=== PATIENT | female | born 2000 | race Caucasian/White ===

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

== ENCOUNTER 2021-02-10 16:46 | Emergency (ER) | payer OTHER ==
[2021-02-10 16:51] VITALS: BP 142/83; PULSE 100; RESP 22; TEMP 98.2
[2021-02-10] MEDS ORDERED: KETOROLAC 15 MG/ML 1 ML VIAL IM STA (17:39)
[2021-02-10] MEDS ORDERED: HYDROcodone/APAP 5-325MG 1 EACH TAB PO STA (17:39)
--- NOTE | 2021-02-10 17:46 | ED ---
Lower Extremity Injury HPI - General Chief Complaint: Extremity Injury, Lower Stated Complaint: Lt Knee Pain/Injury Source: patient, family, RN notes reviewed Mode of arrival: wheelchair Limitations: no limitations - History of Present Illness Initial Comments: 20-year-old white female, alert and oriented 4, presents to the emergency room with complaints of dancing approximately one hour ago on her left foot stuck to the floor but she twisted her knee sustaining a lateral patellar dislocation. Patient states that she put it back really quick but continues to have swelling and pain. Patient states she has never had a dislocation in the past. She states that the pain continues despite the relocation. Patient denies any other medical history, does not take any medication, denies daily smoking or drinking history. MD Complaint: knee injury -: hour(s) (1) Injury: Knee: Left (Was dancing and twisted her knee, patellar dislocation resolved prior to arrival) Type of Injury: unknown Severity scale (1-10): 10 Improves With: nothing Worsens With: movement, palpation Context: other (Dancing lateral patellar dislocation per patient) Associated Symptoms: snap/pop sensation, swelling, unable to bear weight - Related Data Previous Rx's Medication Instructions Recorded Ibuprofen [Motrin] 600 mg PO Q8HR PRN #20 tab 02/10/21 Allergies Allergy/AdvReac Type Severity Reaction Status Date / Time No Known Allergies Allergy Verified 02/10/21 16:51 Review of Systems ROS Statement: Those systems with pertinent positive or pertinent negative responses have been documented in the HPI. ROS Other: All systems not noted in ROS Statement are negative. Past Medical History Past Medical History: No Reported History History of Any Multi-Drug Resistant Organisms: None Reported Additional Past Surgical History / Comment(s): Facial sx. Past Psychological History: No Psychological Hx Reported Smoking Status: Never smoker Past Alcohol Use History: None Reported Past Drug Use History: None Reported General Exam Limitations: no limitations General appearance: alert, in distress (Left knee pain) Head exam: Present: atraumatic, normocephalic, normal inspection Eye exam: Present: normal appearance, PERRL, EOMI. Absent: scleral icterus, conjunctival injection, periorbital swelling Pupils: Present: normal accommodation ENT exam: Present: normal exam, normal oropharynx, mucous membranes moist Neck exam: Present: normal inspection, full ROM. Absent: tenderness, meningismus, lymphadenopathy, thyromegaly Respiratory exam: Present: normal lung sounds bilaterally. Absent: respiratory distress, wheezes, rales, rhonchi, stridor, chest wall tenderness, accessory muscle use, decreased breath sounds Cardiovascular Exam: Present: regular rate, normal rhythm, normal heart sounds. Absent: systolic murmur, diastolic murmur, rubs, gallop, clicks GI/Abdominal exam: Present: soft, normal bowel sounds. Absent: distended, tenderness, guarding, rebound, rigid Rectal exam: Present: deferred Extremities exam: Present: normal capillary refill. Absent: pedal edema, calf tenderness Left Knee exam: Present: tenderness, swelling, effusion (Suprapatellar, left lateral patella). Absent: full ROM, abrasion, laceration, ecchymosis, deformity, crepitus, dislocation, erythema Lower Leg exam: Present: normal inspection, full ROM Ankle exam: Present: normal inspection, full ROM Foot/Toe exam: Present: normal inspection, full ROM Neurovascular tendon exam: Present: no vascular compromise. Absent: pulse deficit, abnormal cap refill, motor deficit, sensory deficit, extremity cold to touch, pallor, abnormal 2-point discrimination, decreased fine/light touch, foot drop Back exam: Present: normal inspection. Absent: tenderness, CVA tenderness (R), CVA tenderness (L), muscle spasm, paraspinal tenderness, vertebral tenderness, rash noted Neurological exam: Present: alert, oriented X3, CN II-XII intact Psychiatric exam: Present: normal affect, normal mood, anxious Skin exam: Present: warm, dry, intact, normal color. Absent: rash, cyanosis, diaphoretic, petechiae, pallor Course Vital Signs 02/10/21 16:48 Temperature 98.2 F Pulse Rate 100 Respiratory 22 Rate Blood Pressure 142/83 O2 Sat by Pulse 100 Oximetry - Reevaluation(s) Reevaluation #1: 02/10/21 19:14 Patient continues to complain of excruciating left knee pain states that she can even straighten it or bear any mom of weight. X-ray was negative. CT ordered. Time: 19:00 Medical Decision Making - Medical Decision Making X-ray negative for fracture or dislocation, however there is a small knee joint effusion which is consistent with patient's complaints of the lateral patellar dislocation prior to arrival. Patient was given [place] and Toradol with minimal relief. Patient offered morphine and declined. CT of the left knee completed due to patient's increased pain and inability to flex or extend the knee of sign ificant pain and shows soft tissue swelling anterior to the patella however no fractures noted. Patient placed in a knee immobilizer directed to rest, ice, elevate and take Motrin as prescribed with Tylenol 3 as needed for severe pain. Case discussed With Dr. Combs who was agreeable to plan of discharge and patient follow up with orthopedics next week. Disposition Clinical Impression: Knee pain, Knee effusion, left Disposition: HOME SELF-CARE Condition: Fair Instructions (If sedation given, give patient instructions): Swollen Knee Joint (ED), Knee Pain (ED), Knee Immobilizer (ED) Additional Instructions: Rest, ice, elevate, and wear knee immobilizer until seen by orthopedics, do not wear during sleep. Take medication as prescribed and return if increasing pain or numbness. Prescriptions: Ibuprofen [Motrin] 600 mg PO Q8HR PRN #20 tab PRN Reason: Pain Is patient prescribed a controlled substance at d/c from ED?: No Referrals: May Cochran MD [Primary Care Provider] - 1-2 days Hakeem Salvador PAC [[facility]] - 1-2 days Time of Disposition: 19:31
--- NOTE | 2021-02-10 18:10 | XR ---
EXAMINATION TYPE: XR knee complete LT DATE OF EXAM: 02/10/2021 COMPARISON: NONE HISTORY: Knee pain TECHNIQUE: 3 views FINDINGS: I see no fracture nor dislocation. Joint spaces are normal. There is soft tissue swelling a nterior to the patella. There is small knee joint effusion. IMPRESSION: Small knee joint effusion. No fracture.
[2021-02-10] MEDS ORDERED: MORPHINE SULFATE 4 MG/ML SYRINGE IM STA (19:25)
--- NOTE | 2021-02-10 19:29 | CT ---
EXAMINATION TYPE: CT knee LT wo con DATE OF EXAM: 02/10/2021 COMPARISON: None HISTORY: Left knee pain after injury. CT DLP: 160.4 mGycm Automated exposure control for dose reduction was used. Images obtained from the distal femur to the proximal tibia without contrast. The patella is intact. There is a mild knee joint effusion. There is mild soft tissue swelling anteri or to the patella. Distal femur is intact. The proximal tibia is intact. There is no evidence of plat eau fracture. The joint spaces are normal. I see no bony destructive process. IMPRESSION: No fracture seen. There is knee joint effusion and subcutaneous swelling anterior to the patella.
[2021-02-10] MEDS ORDERED: ACET/COD 300 MG/30 MG STARTER PACK 6 TAB BTL PO STA (19:31)
== END 2021-02-10 20:28 | disposition home or self-care (01) ==
LOC: EC 16:46
DX: M25.462 Effusion, left knee (principal); X50.1XXA Overexertion from prolonged static or awkward postures, initial encounter; Y93.41 Activity, dancing
CPT/HCPCS: 73562; 73700; 99284; 96372; L1830; J1885